=== PATIENT | female | born 1970 | race Caucasian/White ===

== ENCOUNTER 2017-11-05 09:05 | Day surgery (SDC) | payer OTHER ==
[~2017-11-05] VITALS: Ht 162.6 cm; Wt 87.5 kg
[~2017-11-05 09:05] MED LIST: ACETAMINOPHEN325 M1 PO; ATENOLOL50 MG PO; CODEINE-GUAIFE120 ML PO; FLEXERIL10 MG PO; GABAPENTIN100 MG PO; GABAPENTIN300 MG PO; HYDROCODON-ACE1 EAC8 PO; IBUPROFEN200 MG PO; IBUPROFEN800 MG PO; METOPROLOL SUCC50 MG PO; NEURONTIN100 MG PO; PREDNISONE20 MG PO; TYLENOL325 MG PO; VICODIN 5-5001 EACH PO
--- NOTE | 2017-11-05 13:06 | NUR ---
11/05/17 1306 Munira Izquierdo 1301 PATIENT ARRIVES TO PACU AWAKE OFF/ON, MOANING AT TIMES. REPORTS LOWER ABD PAIN. DENIES NAUSEA. RESP EVEN AND UNLABORED, MASK AT 8 LITERS, DECREASED TO 6L ON ARRIVAL.
--- NOTE | 2017-11-05 14:48 | NUR ---
1410: PATIENT BACK IN DAY SURGERY ROOM FROM PACU. C/O PAIN /. DENIES NAUSEA. VS CHECKED. PATIENT MAINTAINING O2 SATS ON ROOM AIR. IV SITE WNL. SCDs IN PLACE. 3 TROCAR SITES ACROSS ABDOMEN WITH BANDAIDS. BANDAIDS ARE CDI. GUERRA IN PLACE. CALL LIGHT WITHIN REACH. PATIENT GIVEN JELLO TO START EATING. ICE WATER PLACED AT BEDSIDE. AT BEDSIDE. 1425: PATIENT GIVEN TWO TABS OF PERCOCET FOR PAIN.
[2017-11-05] MEDS ORDERED: NORCO 5-325 TA1 EACH PO (16:22)
[2017-11-05] MEDS ORDERED: IBUPROFEN800 MG PO (16:23)
--- NOTE | 2017-11-05 16:30 | NUR ---
1515: DR. BLEVINS IN TO SPEAK WITH PATIENT. 1520: GUERRA DC'D. PATIENT TOLERATED GUERRA DC WELL. PATIENT REQUESTED TO GET UP AND WALK. ASSISTED OOB AND TO WALK IN HALLWAY OF DAY SURGERY UNIT. GAIT STEADY. DENIED DIZZINESS. 1600: PATIENT UP TO BATHROOM. VOID 75 ML. LR BOLUS STARTED. PATIENT GIVEN JELLO AND SODA.
--- NOTE | 2017-11-05 16:50 | NUR ---
1630: PATIENT UP TO BATHROOM INDEPENDENTLY. VOID 125 ML. GAIT STEADY. PATIENT GETTING DRESSED. 1645: IV DC'D WNL. TIP INTACT. DRESSING APPLIED. DISCHARGE INSTRUCTIONS GIVEN TO PATIENT AND .
--- NOTE | 2017-12-15 10:33 | OR ---
[facility] [address], [place] [address] Signed DATE OF OPERATION: 11/05/2017 SURGEON: Jose Nam DO PREOPERATIVE DIAGNOSES: 1. Abnormal uterine bleeding. 2. Left adnexal mass. 3. Menstrual migraine. 4. LESLEE I. POSTOPERATIVE DIAGNOSES: 1. Abnormal uterine bleeding. 2. Left adnexal mass. 3. Menstrual migraine. 4. LESLEE I. 5. Endometriosis. PROCEDURES PERFORMED: 1. Total laparoscopic hysterectomy. 2. Bilateral salpingectomy. 3. Left oophorectomy. 4. Cystourethroscopy. EQUIP TECH: Jamaal Leahy MD ANESTHESIA: General. ESTIMATED BLOOD LOSS: 4 mL. SPECIMENS: 1. Uterus, cervix, bilateral tubes, and left ovarian mass. 2. Pelvic peritoneal endometriosis. FINDINGS: Normal external genitalia. Normal vagina and cervix. On laparoscopy, normal right upper quadrant, appendix, uterus, and bilateral tubes. Her right ovary is normal. The left ovary is enlarged with a cystic-appearing mass with no excrescences. Near the left Electronically Signed By: JOSE NAM DO 12/15/17 1033 PATIENT NAME: ZIA WATERMAN OPERATIVE REPORT DATE OF : 70 REPORT #: [id number] PHYSICIAN: JOSE NAM DO PCP: NO PRIMARY CARE PHYSICIAN REPORT IS CONFIDENTIAL AND NOT TO BE RELEASED WITHOUT AUTHORIZATION [facility] [address] [place] [id number] Signed uterosacral ligament, there is an endometrial lesion that was not deeply infiltrating and removed in total. Hemostasis at the end of the procedure. Normal urethra, bladder, and bilateral ureteral jets on cystourethroscopy. COMPLICATIONS: None. INDICATIONS: Ms. Waterman is a pleasant, 47-year-old, G0, P0, white female, who presents with a history of abnormal heavy periods. She also has a history of abnormal Pap, which was biopsy confirmed as LESLEE I. She also has a history of JEANETTE 2 and was normal on her last exam. In addition to her bleeding, the patient had an incidental pelvic mass noted on ultrasound that was approximately 4 cm in diameter. This was preoperatively described as 2.8 x 2.1 x 2.3 cm solid with a 1.2 x 1.8 x 1.4 cystic component. The patient also has menstrual migraines. She has failed conservative treatment for her abnormal bleeding, wishes to proceed with total laparoscopic hysterectomy, bilateral salpingectomy, left oophorectomy, and cystourethroscopy. Risks, benefits, and alternatives were discussed in detail with the patient. The patient understands and wishes to proceed with the procedure. TECHNIQUE: The patient was taken to the operating room where a time-out was performed to confirm correct patient and correct procedure. General anesthesia was adequately established. The patient was prepped and draped in dorsal lithotomy position with her feet in Yellofin stirrups. ICPs were on and running, and Ancef 2 g preoperatively were given. Her Caprini score was low and no preoperative heparin was indicated. A Amin catheter was inserted. A weighted speculum was placed and the anterior lip of the cervix was grasped with a single-tooth tenaculum. The cervix was gently dilated and a medium VCare uterine manipulator was placed without difficulty. The surgeon's gloves were changed and attention was turned to the base of the umbilicus. The base of the umbilicus was infiltrated with 0.25% Marcaine with epinephrine. A 5 mm incision was made. A 5 mm trocar was placed under direct visualization without difficulty. Low opening pressures were noted and pneumoperitoneum was established without difficulty. Survey of the abdomen and pelvis was performed with the above findings. The left ovary appeared enlarged with a cystic component to it. No excrescences or peritoneal abnormalities were noted throughout the pelvis. The left infundibulopelvic ligament was identified, elevated, fulgurated, and divided after identification of the ureter at the pelvic brim. The IP was noted to be hemostatic and dissection was carried down to the round ligament. The round ligament was then fulgurated and divided in the midportion, and the anterior leaf of the broad ligament was fulgurated and divided down to the bladder reflection. This was divided and the bladder flap created and the bladder pushed well below the cervical cup. The posterior leaf of the broad ligament was then fulgurated Electronically Signed By: JOSE NAM DO 12/15/17 1033 PATIENT NAME: ZIA WATERMAN OPERATIVE REPORT DATE OF : 70 REPORT #: [id number] PHYSICIAN: JOSE NAM DO PCP: NO PRIMARY CARE PHYSICIAN REPORT IS CONFIDENTIAL AND NOT TO BE RELEASED WITHOUT AUTHORIZATION [facility] [address] [place] [id number] Signed and divided toward the uterosacral ligament. One small area of endometriosis was noted, and this was excised sharply with careful undermining of the peritoneum and lateralization of the ureter. Endometrial biopsy was sent to Pathology for further evaluation. The left uterine artery was identified, fulgurated, and divided with good hemostasis. Attention was turned to the right adnexa where the fallopian tube was grasped, elevated, and divided along the mesosalpinx. The utero-ovarian ligament was then fulgurated and divided, and the round ligament was then divided in the mid portion and the leaves of the broad ligament were divided bluntly. The anterior leaf of the broad ligament was fulgurated and divided, and the bladder flap was completed without complication. The posterior leaf was fulgurated and divided down to the uterosacral ligament on the right lateralizing the ureter, which was visualized along its normal course in the pelvis. The right uterine artery was identified, fulgurated, and divided with good hemostasis. The uterus appeared blanched, and the paracervical tissue circumferentially was fulgurated and divided and noted to be thin. Colpotomy was performed using Sonicision device starting at 6 o'clock and carrying in a clockwise manner to 12 o'clock. This process was repeated from the 6 o'clock position in a counterclockwise manner. The uterus, tubes, and left ovary were delivered through the vagina without complication; and the specimen was sent to Pathology for further evaluation. The pelvis was irrigated and found to be hemostatic. Pneumoperitoneum was reestablished by placing a moistened lap and a glove and placing that in the vagina. Colpotomy was then reapproximated using V-Loc suture with Endo Stitch device with careful attention to incorporate the right uterosacral ligament, the vaginal epithelium with each bite, and the left uterosacral ligament. After the colpotomy was closed, the V-Loc needle became dislodged from the Endo Stitch device, and the needle was cut and removed from the patient. The V-Loc suture was reinforced by a simple laparoscopic placed stitch of 0 Vicryl with the tail of the V-Loc incorporated into this stitch. Vaginal exam was performed that demonstrated an intact cuff with no movement of the suture noted. Evicel was then applied to the infundibulopelvic ligament on the left and along the peritoneal biopsy site as well as the vaginal cuff. Good hemostasis was again appreciated. Pneumoperitoneum was reduced. Trocars were removed and trocar sites were repaired with 4-0 Vicryl. A 5 mm trocar was placed in the left lower quadrant at the beginning of the case under direct visualization without complication and an 8 mm expanding port had again previously been placed under direct visualization without complication at the beginning of the laparoscopy. The Amin catheter was then removed and cystourethroscopy was performed. A 70-degree cystoscope was placed in the urethral meatus and advanced under direct visualization into the bladder. Normal urethra was noted. Normal bladder dome and bilateral ureteral jets were noted. The bladder was drained. Amin catheter was reinserted, and the patient was taken to the PACU in good and stable condition. Sponge, needle, and instrument counts were correct x2 at the end of the procedure. Dr. Leahy was present and participated in all portions of procedure. Electronically Signed By: JOSE NAM DO 12/15/17 1033 PATIENT NAME: ZIA WATERMAN OPERATIVE REPORT DATE OF : 70 REPORT #: [id number] PHYSICIAN: JOSE NAM DO PCP: NO PRIMARY CARE PHYSICIAN REPORT IS CONFIDENTIAL AND NOT TO BE RELEASED WITHOUT AUTHORIZATION [facility] [address] [place] [address] Signed Jose Nam DO JDW/MODL /[id number] Copies: ~ Electronically Signed By: JOSE NAM DO 12/15/17 1033 PATIENT NAME: ZIA WATERMAN OPERATIVE REPORT DATE OF : 70 REPORT #: [id number] PHYSICIAN: JOSE NAM DO PCP: NO PRIMARY CARE PHYSICIAN REPORT IS CONFIDENTIAL AND NOT TO BE RELEASED WITHOUT AUTHORIZATION
== END 2017-11-05 17:00 | disposition home or self-care (01) ==
LOC: OPS 09:05 → DS 09:05 → OPS 10:45 → DS 10:45 → OPS 17:00
PROVIDERS: Obstetrics & Gynecology
PROC: 0UT94ZZ Resection of Uterus, Percutaneous Endoscopic Approach (ICD-10-PCS; principal; 2017-11-05 10:45)
PROC: 0UT14ZZ Resection of Left Ovary, Percutaneous Endoscopic Approach (ICD-10-PCS; 2017-11-05 10:45)
PROC: 0UT74ZZ Resection of Bilateral Fallopian Tubes, Percutaneous Endoscopic Approach (ICD-10-PCS; 2017-11-05 10:45)
DX: N72 Inflammatory disease of cervix uteri (principal); N87.0 Mild cervical dysplasia; N80.0 Endometriosis of uterus; N83.8 Other noninflammatory disorders of ovary, fallopian tube and broad ligament; D27.1 Benign neoplasm of left ovary; G43.829 Menstrual migraine, not intractable, without status migrainosus; Z79.899 Other long term (current) drug therapy; Z87.891 Personal history of nicotine dependence
CPT/HCPCS: 00840; J0690; J1100; J1170; J1885; J2250; J2405; J2704; J3010; J7120

== ENCOUNTER 2022-12-07 03:55 | Emergency (ER) | payer OTHER ==
[~2022-12-07] VITALS: Ht 162.6 cm; Wt 89.8 kg
[~2022-12-07 03:55] MED LIST changes: +ATENOLOL100 MG PO; +CEPHALEXIN500 MG PO; +NORCO 5-325 TA1 EACH PO; +SUDOGEST60 MG PO
--- OUTSIDE RECORDS SUMMARY | 2022-12-07 04:00 | XMS ---
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 Tae has no Care Guidelines for this patient. [facility] COUNT ([address] [facility] TOTAL 2 NOTE: Visits indicate total known visits. ED/C VISIT TRACKING (12 MO.) 12/07/2022 03:58 [facility] [place] TYPE: Emergency COMPLAINT: - LARGE LUMP ON BACK OF HEAD 12/05/2022 15:18 [facility] [place] TYPE: Emergency COMPLAINT: - SKIN PROBLEM INPATIENT VISIT TRACKING (12 MO.) No inpatient visits to display in this time frame [email or web address]
[2022-12-07] MEDS ORDERED: MOUNJARO7.5 MG/0.5 SQ (04:10)
[2022-12-07] MEDS ORDERED: PREDNISONE10 MG PO (04:10)
[2022-12-07] MEDS ORDERED: CYCLOBENZAPRINE5 MG PO (04:10)
[2022-12-07] MEDS ORDERED: DOXYCYCLINE HY100 MG PO (04:30)
[2022-12-07 04:48] VITALS: BP 131/63
[2022-12-10] MEDS ORDERED: VITAMIN C100 MG PO (11:19)
== END 2022-12-07 04:51 | disposition home or self-care (01) ==
LOC: ED 03:55
DX: R22.0 Localized swelling, mass and lump, head (principal); Z87.891 Personal history of nicotine dependence; Z88.5 Allergy status to narcotic agent; Z88.8 Allergy status to other drugs, medicaments and biological substances; Z79.52 Long term (current) use of systemic steroids; Z79.899 Other long term (current) drug therapy
CPT/HCPCS: 10160; 99282-25; A9270

== ENCOUNTER 2023-01-02 08:35 | Inpatient (IN) | payer OTHER ==
[~2023-01-02] VITALS: Ht 162.6 cm; Wt 86.7 kg
--- NOTE | ~2023-01-02 | DS ---
[facility] [address] [place], [place] [address] Draft ADMISSION DATE: 01/02/2023 DISCHARGE DATE: 01/05/2023 REASON FOR ADMISSION: Gallstone pancreatitis. 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 She was evaluated in emergency room by Dr. Delaney and found to have tenderness and findings of elevated white count of 12.6, normal liver enzymes essentially bilirubin of 0.6, but a lipase level greater than 11,000. Gallbladder ultrasound confirmed multiple gallstones. She is admitted with the diagnosis of acute gallstone pancreatitis. PERTINENT PHYSICAL EXAMINATION: GENERAL: Showed a pleasant woman accompanied by her . She is not systemically toxic. VITAL SIGNS: Temperature is 97.6, pulse 72, blood pressure 124/76, O2 saturation 100% on room air. ABDOMEN: Exam was normal except for tenderness in the epigastric and right subcostal area. HOSPITAL COURSE: She was given intravenous antibiotic Ancef, IV fluid resuscitation, DVT prophylaxis and minimal oral intake, ice chips predominantly. Her lipase the following day was 10 times less, greater than 1100. She still had tenderness and maintained continued observation. The following day, her lipase was still less and her symptoms were much improved as well. On Wednesday, January 04, 2023, she underwent laparoscopic cholecystectomy with intraoperative cholangiogram. The gallbladder was secondarily inflamed. There was extensive sludge and gallstones within the gallbladder itself and cholangiogram was normal. There was no saponification in the lesser sac or elsewhere. Postoperatively she did well. She tolerated her diet. By the time of discharge she is ambulating well, tolerating a regular diet and doing well. LABORATORY DATA: Her discharge lab study show a white count of 9.0, hematocrit 31.6, platelets 210,000, electrolytes normal. Glucose 117, lipase 262. PATIENT NAME: ZIA TIMMONS DISCHARGE SUMMARY DATE OF : 70 REPORT #: [id number] PHYSICIAN: MIRIAM TEJADA MD PCP: EVIE GRISSOM MD REPORT IS CONFIDENTIAL AND NOT TO BE RELEASED WITHOUT AUTHORIZATION [facility] [address] [place], [place] [address] Draft FOLLOWUP PLAN: She is to return to see me in approximately one month. She is asked to lift no more than 20 pounds for the next two weeks. She is permitted to shower tomorrow. 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 Additionally, she has a recent wound from drainage or excision procedure by Dr. Silke Piña and will be following with him as well. DISCHARGE MEDICATIONS: 1. Will include [place] 5/325, one to two p.o. q.4 hours p.r.n. pain #10. 2. Tylenol plain 500 mg tablets, two tablets p.o. q.6 hours as needed for pain #20. She will resume her usual medications which include gabapentin 200 mg two tablets p.o. at bedtime. 3. Sudogest 60 mg p.o. q.6 hours as needed for congestion. 4. Atenolol 100 mg p.o. daily. 5. Tirzepatide (Mounjaro) 7.5 mg subcutaneously weekly on Fridays. 6. Vitamin C 500 mg p.o. daily. 7. Clindamycin 200 mg p.o. q.6 hours for seven days starting December 30. DISCHARGE DIAGNOSES: 1. Acute gallstone pancreatitis, status post laparoscopic cholecystectomy with intraoperative cholangiogram, January 04, 2023. 2. Recent excision of scalp lesion (Dr. Silke Piña). 3. Allergies, Demerol and tramadol. 4. Obesity. MD QUINTIN Camacho/MODL /[id number] cc: Silke Piña MD Copies: SILKE PIÑA MD PATIENT NAME: ZIA TIMMONS DISCHARGE SUMMARY DATE OF : 70 REPORT #: [id number] PHYSICIAN: MIRIAM TEJADA MD PCP: EVIE GRISSOM MD REPORT IS CONFIDENTIAL AND NOT TO BE RELEASED WITHOUT AUTHORIZATION [facility] [address] [place] [id number] Draft ~ PATIENT NAME: ZIA TIMMONS DISCHARGE SUMMARY DATE OF : 70 REPORT #: [id number] PHYSICIAN: MIRIAM TEJADA MD PCP: EVIE GRISSOM MD REPORT IS CONFIDENTIAL AND NOT TO BE RELEASED WITHOUT AUTHORIZATION
[~2023-01-02 08:35] MED LIST changes: +CYCLOBENZAPRINE5 MG PO; +DOXYCYCLINE HY100 MG PO; +MOUNJARO7.5 MG/0.5 SUB-Q; +PREDNISONE10 MG PO; +VITAMIN C 500500 MG PO
--- OUTSIDE RECORDS SUMMARY | 2023-01-02 08:38 | XMS ---
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 - Patient with suicidal and/or homicidal ideations eloped. - Patient eloped with IV in place. Details: Patient LWBS CRITERIA MET - Group Notification - PDMP - [facility] - 2 Visits in 30 Days CARE PROVIDERS There are no care providers on record at this time. Tae has no Care Guidelines for this patient. E.D. VISIT COUNT (12 MO.) 3 [facility]. TOTAL 3 NOTE: Visits indicate total known visits. 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
[2023-01-02] MEDS ORDERED: CLINDAMYCIN HC300 MG PO (09:11)
[2023-01-02 11:20] VITALS: BP 124/76
[2023-01-02 17:24] VITALS: BP 131/64
[2023-01-02 20:22] VITALS: BP 120/58
[2023-01-03 02:15] VITALS: BP 117/68
[2023-01-03 05:40] VITALS: BP 123/59
--- NOTE | 2023-01-03 06:43 | EKG ---
[facility] [address] [facility] [place], [place] [address] Signed Normal sinus rhythm Normal ECG When compared with ECG of 09-DEC-2022 08:26, Confirmed by SUZE ALARCON MD ([id number]) on 01/03/2023 6:43:20 AM Electronically Signed By: SUZE ALARCON 01/03/23 0643 PATIENT NAME: ZIA TIMMONS Electrocardiogram DATE OF : 70 PHYSICIAN: SUZE ALARCON REPORT #: [id number] REPORT IS CONFIDENTIAL AND NOT TO BE RELEASED WITHOUT AUTHORIZATION
[2023-01-03 09:20] VITALS: BP 95/61
[2023-01-03 13:58] VITALS: BP 128/63
[2023-01-03 17:28] VITALS: BP 113/72
[2023-01-03 21:24] VITALS: BP 124/65
[2023-01-04] VITALS (7 sets, daily range): BP systolic 120–136; BP diastolic 61–73
--- NOTE | 2023-01-04 14:55 | HP ---
[facility] [address] [place], [place] [address] Signed ADMISSION DATE: 01/02/2023 REASON FOR ADMISSION: Gallstone pancreatitis. HISTORY OF PRESENT ILLNESS: This is a 52-year-old white woman who was awakened this morning at approximately 3:30 a.m. with severe epigastric pain radiating into the back. She got out of bed thinking that she had "gas bubbles," but could not find any position of comfort. Her symptoms worsen quite markedly and she presents to the emergency room at approximately 8:30 this morning where she was evaluated by Dr. Delaney and found to have tenderness in epigastric and right subcostal area. The patient was noted to have had vomiting at approximately 5:00 a.m. She was evaluated and found to have an elevated white count of 12.6, alkaline phosphatase of 131, AST of 75, ALT of 48, bilirubin of 0.6. An ultrasound performed which showed gallstones without evidence of cholecystitis. Additionally, noted was a lipase greater than 11,000. She was given diagnosis of acute gallstone pancreatitis on that basis. She has had episodes of similar pain, but much less extent in the past. Last episode in October she thinks. PAST MEDICAL HISTORY: Negative for abdominal operation or any other intraabdominal ongoing problem. Notably, a beta HCG has been found to be negative. SOCIAL HISTORY: She is , accompanied by her . She has had no children herself. She does have children through her 's previous marriage. 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 She does not drink alcohol and does not smoke. REVIEW OF SYSTEMS: She denies any shortness of breath or chest pain. She has no dysuria or hematuria. She has no blood per rectum. Notably, she underwent excision or drainage or both of a scalp lesion by Dr. Silke Piña recently. She has some itching in that operative site. She was prescribed clindamycin, which she had been taking up to the time of admission. She does take gabapentin additionally for low back pain. CURRENT MEDICATIONS: Electronically Signed By: MIRIAM TEJADA MD 01/04/23 1455 PATIENT NAME: ZIA TIMMONS HISTORY AND PHYSICAL DATE OF : 70 REPORT #: [id number] PHYSICIAN: MIRIAM TEJADA MD PCP: EVIE GRISSOM MD REPORT IS CONFIDENTIAL AND NOT TO BE RELEASED WITHOUT AUTHORIZATION [facility] [address] [place], [place] [address] Signed Vitamin C 500 mg p.o. daily, atenolol 100 mg p.o. daily, clindamycin 300 mg p.o. q.8 hours for seven days, gabapentin 300 mg two tablets p.o. at bedtime, episodic use of pseudoephedrine and tirzepatide. ALLERGIES: She describes allergy to codeine (hives, tramadol), rash and SVT and Demerol (hypotension). PHYSICAL EXAMINATION: GENERAL: This is a pleasant white woman who is accompanied by her . She does not look systemically toxic at this time. Her she is 5 feet 4 inches tall, 86.7 kg with a BMI of 32.8. CURRENT VITAL SIGNS: Temperature 97.6, pulse 72, blood pressure 124/76, O2 saturation 100% on room air. HEENT: Examination shows reasonably moist mucous membranes at this time. Trachea is midline. She has no hoarseness. There is no cervical adenopathy. There is no carotid bruit. CHEST: Clear without wheeze or rhonchi. HEART: Regular without murmur. ABDOMEN: Obese and generally soft. There is marked tenderness in the epigastric and less tenderness in the right upper quadrant area. EXTREMITIES: No clubbing, cyanosis, or edema. LABORATORY STUDIES: White count of 12.6, hematocrit 41.4, and platelets 262,000. Chem profile is normal including a creatinine of 0.85. Glucose is 162, bilirubin 0.6, AST 75, ALT 48, alkaline phosphatase 131, globulin 3.9, lipase 11,634. Beta HCG negative. Urinalysis is normal except for a small amount of ketone detected. Ultrasound images were reviewed in detail as well as the report is described small gallstones. ASSESSMENT: The patient has gallstone pancreatitis. I discussed the pathophysiology of problem with the patient and her . At this point, fluid resuscitation, IV antibiotics, parenteral pain medication and ulcer prophylaxis are appropriate. Cholecystectomy would be offered when the clinical pancreatitis is improving or resolving prior to discharge from the hospital. Explained the rationale for this. The patient was on clindamycin for incision and drainage of a scalp lesion on the left side. My examination of that shows wound edges. No sign of drainage currently nor sign of erythema. The antibiotic regimen outlined will likely provide additional coverage for this problem, which has already been addressed surgically. Electronically Signed By: MIRIAM TEJADA MD 01/04/23 1455 PATIENT NAME: ZIA TIMMONS HISTORY AND PHYSICAL DATE OF : 70 REPORT #: [id number] PHYSICIAN: MIRIAM TEJADA MD PCP: EVIE GRISSOM MD REPORT IS CONFIDENTIAL AND NOT TO BE RELEASED WITHOUT AUTHORIZATION [facility] [address], [place] [address] Signed MD QUINTIN Camacho/LAUREANO /[id number] cc: Dr. Alok Piña MD Copies: SILKE PIÑA MD ~ Electronically Signed By: MIRIAM TEJADA MD 01/04/23 1455 PATIENT NAME: ZIA TIMMONS HISTORY AND PHYSICAL DATE OF : 70 REPORT #: [id number] PHYSICIAN: MIRIAM TEJADA MD PCP: EVIE GRISSOM MD REPORT IS CONFIDENTIAL AND NOT TO BE RELEASED WITHOUT AUTHORIZATION
[2023-01-05 01:48] VITALS: BP 111/85
[2023-01-05 05:32] VITALS: BP 125/53
[2023-01-05] MEDS ORDERED: HYDROCODON-ACE1 EA10 PO (08:35)
[2023-01-05] MEDS ORDERED: ACETAMINOPHEN500 MG PO (08:36)
--- NOTE | 2023-01-05 09:48 | OR ---
[facility] [address] [place], [place] [address] Signed DATE OF OPERATION: 01/04/2023 SURGEON: Miriam Tejada MD PREOPERATIVE DIAGNOSES: 1. Gallstone pancreatitis. 2. Obesity. POSTOPERATIVE DIAGNOSES: 1. Gallstone pancreatitis. 2. Obesity. PROCEDURES: 1. Laparoscopic cholecystectomy with intraoperative cholangiogram. 2. Surgeon-directed fluoroscopy. 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 INDICATIONS: This 52-year-old white woman is a patient DrJerson Ruiz and was admitted by me on January 02, 2023, with severe epigastric and right subcostal pain and tenderness. She was found to have gallstones on gallbladder ultrasound. Her lipase level was greater than 11,000. Only a month ago, she underwent excision of a scalp lesion by Dr. Silke Piña in the left occipitoparietal area, which appears to be healing. She has been given fluids, IV antibiotics and bowel rest and her lipase sequentially decreased on a daily basis and her clinical symptoms have largely subsided. On that basis, she is ready for cholecystectomy for underlying diagnosis of gallstone pancreatitis. She understands as does her the risk of bleeding, infection, bile duct injury, need for open procedure and of course failure to cure the problem. They understand these and wished to proceed. FINDINGS: The gallbladder was secondarily inflamed. No doubt related to recent pancreatitis. The liver itself was normal. Cholangiogram was normal. The gallbladder once excised showed thick dense sludge as well as multiple small gallstones. Cholecystectomy was accomplished without complication. DESCRIPTION OF PROCEDURE: Electronically Signed By: MIRIAM TEJADA MD 01/05/23 0948 PATIENT NAME: ZIA TIMMONS OPERATIVE REPORT DATE OF : 70 REPORT #: [id number] PHYSICIAN: MIRIAM TEJADA MD PCP: EVIE RUIZ MD REPORT IS CONFIDENTIAL AND NOT TO BE RELEASED WITHOUT AUTHORIZATION [facility] [address] [place], [place] [address] Signed The patient was brought to the operating room, given a general endotracheal anesthetic. Preoperative antibiotic Ancef had been given. Sequential compression device stockings were used and heparin subcutaneously administered. After satisfactory general endotracheal anesthesia, the abdomen was prepared with a chlorhexidine solution and draped sterilely. She does have a thick abdominal wall pannus. An infraumbilical incision was made and using an open Bryanna cannula technique pneumoperitoneum was achieved to a level of 14 mmHg of carbon dioxide gas. Intra-abdominal inspection was undertaken showing no sign of ascites or carcinomatosis. There were secondary inflammatory changes and edema of the upper abdomen. The gallbladder itself was not tensely distended, but was secondarily inflamed. Three additional trocars were placed in usual configuration in the subxiphoid, right midclavicular, and right anterior axillary line. The gallbladder was elevated cephalad and adherent adhesions of omentum and duodenum were taken down sharply ultimately exposing well the entire gallbladder. The gallbladder was elevated more cephalad more fully. The infundibulum was grasped and retracted laterally and using blunt electrocautery dissection the triangle of Calot was dissected free. Considerable amount of edema was noted secondarily to the pancreatitis no doubt. Notably, she had no saponification related to the pancreatitis. Ultimately, the cystic duct was well identified and secured with a clip at the gallbladder-cystic duct junction and transverse choledochotomy made in the cystic duct. Using a metallic angiocatheter based cholangiocatheter securing it to the cystic duct with a clip. Intraoperative cholangiography was undertaken. Free flow of contrast was noted into the biliary tree with prompt emptying into the duodenum. There was no sign of filling defect, impediment to flow, or other problem. The catheter was removed after removal of the clip and the cystic duct was triply clipped and divided. The gallbladder was then dissected free in a retrograde fashion using electrocautery. Clips were applied to subvesical arterial branches as necessary. The gallbladder was placed in an endobag and extracted through the infraumbilical port site, opened on the back table and found to have thick sludge as well as multiple small stones. Mucosa of the gallbladder had profound cholesterolosis. Irrigation was undertaken in the subhepatic space. There was no sign of bile leak, bleeding or other problems. The trocars were removed under direct visualization showing no sign of bleeding. The infraumbilical fascial incision was reapproximated with interrupted 0 Vicryl suture. A 10 mL of 0.25% Marcaine with epinephrine was injected into the trocar sites and skin closed with interrupted 3-0 Vicryl. Steri-Strips were applied. She was ultimately extubated and transferred to the recovery room in good condition having suffered no complication. Sponge, needle, and instrument counts were reported as correct x3. Miriam Tejada MD Electronically Signed By: MIRIAM TEJADA MD 01/05/23 0948 PATIENT NAME: ZIA TIMMONS OPERATIVE REPORT DATE OF : 70 REPORT #: [id number] PHYSICIAN: MIRIAM TEJADA MD PCP: EVIE RUIZ MD REPORT IS CONFIDENTIAL AND NOT TO BE RELEASED WITHOUT AUTHORIZATION [place] [id number] [place] [address] Signed /LAUREANO /[id number] cc: MD Evie Chapman MD [facility] Copies: SILKE PIÑA MD ~ Electronically Signed By: MIRIAM TEJADA MD 01/05/23 0948 PATIENT NAME: ZIA TIMMONS OPERATIVE REPORT DATE OF : 70 REPORT #: [id number] PHYSICIAN: MIRIAM TEJADA MD PCP: EVIE RUIZ MD REPORT IS CONFIDENTIAL AND NOT TO BE RELEASED WITHOUT AUTHORIZATION
--- NOTE | 2023-01-06 17:56 | PATH ---
[facility] [address] [facility] [place], [place] [address] Signed SPECIMEN(S): A GALLBLADDER AND STONES SPECIMEN SOURCE: A. GALLBLADDER AND STONES CLINICAL HISTORY: Cholelithiasis, gallstone pancreatitis. FINAL PATHOLOGIC DIAGNOSIS: Gallbladder, cholecystectomy: - Morphologic features consistent with cholesterolosis with cholelithiasis. NA:sjc:C2NR MICROSCOPIC EXAMINATION: Histologic sections of all submitted blocks are examined by light microscopy. These findings, together with the gross examination, support the pathologic diagnosis. GROSS DESCRIPTION: The specimen, labeled and designated "[place], gallbladder," is received in formalin and consists of: Specimen: Previously opened gallbladder. Dimensions: 6.5 x 4.0 cm. Serosa: Dark green and smooth. Cystic Duct: Inked, unobstructed. Calculi: Numerous yellow gallstones within the gallbladder and within the container that range in size from 0.1 to 0.2 cm in greatest dimension. Mucosa: Green and velvety with yellow flecking. Wall thickness: 0.9 cm. Lymph node: No pericystic lymph nodes are grossly identified. Additional: None. Marine Architect sections are submitted in (A1). JS (under the direct supervision of a pathologist) The Gross Description was prepared using a voice recognition system. The report was reviewed for accuracy; however, sound-alike word errors, addition and/or deletions may occur. If there is any question about this report, please contact Client Services. PERFORMING LABORATORY: The technical component was performed by [facility], [address] [place] [id number] (CLIA# [id number]). PATIENT NAME: ZIA TIMMONS PATHOLOGY DATE OF : 70 REPORT #: [id number] PHYSICIAN: HENRIQUE PATHOLOGY PCP: EVIE GRISSOM MD REPORT IS CONFIDENTIAL AND NOT TO BE RELEASED WITHOUT AUTHORIZATION [facility] [address] [place], [place] [address] Signed Professional interpretation was performed by [facility], [address] [place] [address] (CLIA# [id number]). Diagnostician: Pily Mills MD Pathologist Electronically Signed 01/06/2023 Copies: ~ PATIENT NAME: ZIA TIMMONS PATHOLOGY DATE OF : 70 REPORT #: [id number] PHYSICIAN: HENRIQUE PATHOLOGY PCP: EVIE GRISSOM MD REPORT IS CONFIDENTIAL AND NOT TO BE RELEASED WITHOUT AUTHORIZATION
== END 2023-01-05 09:20 | disposition home or self-care (01) | DRG 419 ==
LOC: ED 08:35 → MS 10:38
PROVIDERS: ADMIT Surgery; ATTEND Surgery
PROC: BF502Z0 Other Imaging of Bile Ducts using Fluorescing Agent, Intraoperative (ICD-10-PCS; 2023-01-04)
PROC: 0FT44ZZ Resection of Gallbladder, Percutaneous Endoscopic Approach (ICD-10-PCS; principal; 2023-01-04 12:24)
DX: K85.10 Biliary acute pancreatitis without necrosis or infection (principal); E66.9 Obesity, unspecified; Z88.8 Allergy status to other drugs, medicaments and biological substances; Z87.891 Personal history of nicotine dependence; Z90.710 Acquired absence of both cervix and uterus; Z98.890 Other specified postprocedural states; Z88.5 Allergy status to narcotic agent; Z79.2 Long term (current) use of antibiotics; Z79.899 Other long term (current) drug therapy; Z68.32 Body mass index [BMI] 32.0-32.9, adult
CPT/HCPCS: 00790; 36415; 74300; 76705; 80053; 81003; 83690; 83735; 84703; 85025; 93005; 93010; 96374; 96375; 96376; 99285-25; A9270; J0330; J0690; J1100; J1170; J1644; J1885; J2001; J2405; J2704; J3010; J7121; Q9967